=== PATIENT | female | born 2005 | race Caucasian/White ===

== ENCOUNTER 2023-12-03 02:34 | Emergency (ER) | payer BC ==
[~2023-12-03] VITALS: Ht 149.9 cm; Wt 58.5 kg
[2023-12-03 02:44] VITALS: PULSE 78; RESP 18; TEMP 98
[2023-12-03] MEDS: FAMOTIDINE 20 MG/2 ML VIAL IV STA (03:18)
[2023-12-03] MEDS: ONDANSETRON HCL INJ 2MG/ML 2ML 2 MG/ML VIAL IV STA (03:19)
[2023-12-03] MEDS: SODIUM CHLORIDE 0.9% 1000ML 1,000 ML IV ONE (03:20)
[2023-12-03] MEDS ORDERED: PROMETHAZINE HCL (IM) 25 MG/ML VIAL IM ONE (04:14)
[2023-12-03] MEDS: SODIUM CHLORIDE 0.9% 1000ML 1,000 ML IV STA (04:14)
[2023-12-03] MEDS: PROMETHAZINE 25MG/ NS 50ML (IV) IV ONE (04:20)
[2023-12-03] MEDS ORDERED: PROMETHAZINE 25MG/ NS 50ML (IV) IV ONE (04:30)
[2023-12-03] MEDS ORDERED: PROMETHAZINE HC25 M1 PO (04:36)
[2023-12-03] MEDS ORDERED: FAMOTIDINE40 MG PO (04:37)
[2023-12-03] MEDS ORDERED: LOPERAMIDE2 MG PO (04:42)
[2023-12-03 04:51] VITALS: BP 120/76; PULSE 76; RESP 18; TEMP 98.1; O2SAT 100
== END 2023-12-03 04:55 | disposition home or self-care (01) ==
LOC: FSED 02:41
DX: R11.2 Nausea with vomiting, unspecified (principal); A08.4 Viral intestinal infection, unspecified; E86.0 Dehydration; Z11.52 Encounter for screening for COVID-19
CPT/HCPCS: 0223U; 74176; 87400; 96374; 96375; 99284; J2405; J2550; J7030